=== PATIENT | male | born 1975 | race Hispanic/Latino ===

== ENCOUNTER 2021-04-15 17:35 | Emergency (ER) | payer OTHER, BC ==
[~2021-04-15] VITALS: Ht 190.5 cm; Wt 93.0 kg
== END 2021-04-15 19:59 | disposition home or self-care (01) ==
LOC: ED 17:35
DX: S80.01XA Contusion of right knee, initial encounter (principal); V29.9XXA Motorcycle rider (driver) (passenger) injured in unspecified traffic accident, initial encounter; Z88.6 Allergy status to analgesic agent
CPT/HCPCS: 73560; 99283-25

== ENCOUNTER 2022-10-16 20:46 | Emergency (ER) | payer BC ==
[~2022-10-16] VITALS: Ht 190.5 cm; Wt 93.0 kg
--- OUTSIDE RECORDS SUMMARY | 2022-10-16 20:50 | XMS ---
PreManage Notification: TONYA VILLELA [employer] Events No recent Security Events currently on file [facility] There are no care providers on record at this time. Marisabel has no Care Guidelines for this patient. Magali VISIT COUNT (12 MO.) 1 RICHAR Mitchell TOTAL 1 NOTE: Visits indicate total known visits. ED/UCC VISIT TRACKING (12 MO.) 10/16/2022 20:48 RICHAR Jiménez OR TYPE: Emergency COMPLAINT: - ALLERGIC REACTION INPATIENT VISIT TRACKING (12 MO.) No inpatient visits to display in this time frame [email or web address]
== END 2022-10-16 22:12 | disposition home or self-care (01) ==
LOC: ED 20:46
DX: T78.1XXA Other adverse food reactions, not elsewhere classified, initial encounter (principal); Z88.6 Allergy status to analgesic agent
CPT/HCPCS: 96374; 96375; 99283-25; J1200; J2930